=== PATIENT | female | born 1990 ===

== ENCOUNTER 2021-03-20 05:16 | Inpatient (IN) ==
[2021-03-20 06:17] LABS: Urine Benzodiazepine Screen None Detected (None Detect); Urine Cannabinoids Screen None Detected (None Detect); Urine Opiates Screen None Detected (None Detect)
[2021-03-20] MEDS ORDERED: Lactated Ringers 1000 ml BAG 1,000 ML IV ONE ×2 (14:11→15:22)
[2021-03-20] MEDS ORDERED: OBEPIDURAL 250 ML EPIDURAL ONE (14:12)
[2021-03-20 14:37] LABS: ABS Basophils 0.1 10^3/ul (0-0.2); ABS Lymphocytes 0.7 10^3/ul (1.0-4.8); ABS Monocytes 0.4 10^3/ul (0-0.8); Hematocrit 38 % (35-47); Hemoglobin 13.2 g/dL (12.0-16.0); Lymphocyte % 3.8 %; Mean Corpuscular HGB Conc 35 g/dL (31-36); Mean Corpuscular Hemoglobin 31 pg (27-31); Mean Corpuscular Volume 88 fL (80-97); Mean Platelet Volume 6.8 fL (7.4-10.4); Platelet Count 317 10^3/uL (150-450); Red Blood Count 4.34 10^6 /uL (3.70-4.87); Red Cell Distribution Width 13 % (10-15); White Blood Count 17.2 10^3/uL (3.5-10.8)
[2021-03-20] MEDS ORDERED: Lactated Ringers 1000 ml BAG 500 ML IV PRN ×2 (15:22)
[2021-03-20] MEDS ORDERED: Sodium Citrate/Citric Acid LIQ 15 ML UDC PO PRN (15:22)
[2021-03-20] MEDS ORDERED: Phenylephrine 40 mcg/mL 10mL (400mcg) SYRINGE IV PUSH PRN ×2 (15:22)
[2021-03-20] MEDS ORDERED: Oxytocin in LR 20 UNITS/1,000 ML BAG IVPB SCH ×3 (15:30→22:15)
[2021-03-20] MEDS ORDERED: Lactated Ringers 1000 ml BAG 1,000 ML IV SCH ×3 (16:00→22:00)
[2021-03-20] MEDS ORDERED: OBEPIDURAL 250 ML EPIDURAL SCH (16:00)
[2021-03-20 16:17] LABS: Urine Appearance Cloudy; Urine Bilirubin Negative (Negative); Urine Blood 3+ (Negative); Urine Color Yellow; Urine Glucose 1+(50 mg/dL) (Negative); Urine Ketones 1+ (Negative); Urine Nitrite Negative (Negative); Urine Protein 1+(30 mg/dL) (Negative); Urine Specific Gravity 1.011 (1.002-1.030); Urine Urobilinogen Negative (Negative)
[2021-03-20 16:23] LABS: Urine Bacteria Absent (Absent); Urine Red Blood Cell 3+(>10/hpf) (Absent); Urine White Blood Cell Trace(0-5/hpf) (Absent)
[2021-03-20] MEDS ORDERED: Chloroprocaine 3% 20 ml VIAL ONE (21:39)
[2021-03-20] MEDS ORDERED: Glycerin ADULT 2.4 gm SUPP PR PRN (21:53)
[2021-03-20] MEDS ORDERED: Methylergonovine 0.2 mg AMPULE 1 ml AMP IM ONE (21:53)
[2021-03-20] MEDS ORDERED: Dibucaine 1% OINT 28.35 GM TUBE PR PRN (21:53)
[2021-03-20] MEDS ORDERED: Witch Hazel PAD JAR TOPICAL PRN (21:53)
[2021-03-21] MEDS ORDERED: Lidocaine 1% VIAL 10 MG/ML VIAL ONE (03:50)
[2021-03-21 06:54] LABS: ABS Basophils 0.1 10^3/ul (0-0.2); ABS Monocytes 0.9 10^3/ul (0-0.8); ABS Neutrophils 13.7 10^3/ul (1.5-7.7); Eosinophil % 0.1 %; Hematocrit 35 % (35-47); Lymphocyte % 11.7 %; Mean Corpuscular HGB Conc 35 g/dL (31-36); Mean Corpuscular Hemoglobin 31 pg (27-31); Mean Corpuscular Volume 90 fL (80-97); Mean Platelet Volume 6.9 fL (7.4-10.4); Platelet Count 302 10^3/uL (150-450); Red Blood Count 3.84 10^6 /uL (3.70-4.87); Red Cell Distribution Width 13 % (10-15); White Blood Count 16.7 10^3/uL (3.5-10.8)
[2021-03-22 15:33] VITALS: BP 109/53
== END 2021-03-22 12:40 | disposition home or self-care (01) | DRG 560 ==
LOC: MCHOBOUT 05:16 → MCHOB 06:39
PROVIDERS: ADMIT Midwife; ATTEND Midwife